=== PATIENT | male | born 1960 | race American Indian/Alaskan Native ===

== ENCOUNTER 2019-08-15 18:01 | Emergency (ER) | payer BC ==
--- NOTE | 2019-08-15 18:56 | Emergency Department Report ---
ED Psych HPI - General Chief Complaint: Psych Stated Complaint: PSYCH EVAL Time Seen by Provider: 08/15/19 18:39 Source: EMS Mode of arrival: Stretcher - History of Present Illness Initial Comments: Patient is 59 years old male with history of paranoid schizophrenia, hypertension and hyperlipidemia. Patient brought to the emergency room accompanied by his and his son. Both reported that patient has been very paranoid recently. He refused to eat or drink since this morning. They stated that he has been pacing in the house. They also stated that he is asking suspicious question. When I talked to the patient patient is unable to give a complete the statement. Family also stated that he fell and hit his head on Thursday but did not seek any medical attention. When asked about suicidal and homicidal ideation patient refused to answer. MD Complaint: altered mental status -: days(s) (4) Associated Psychiatric Symptoms: racing thoughts History of same: Yes Quality: constant Associated Symptoms: denies other symptoms Treatments Prior to Arrival: none - Related Data Home Medications Medication Instructions Recorded Confirmed Last Taken Amlodipine Besylate [Norvasc] 10 mg PO QAM 08/15/19 08/15/19 Unknown Aspirin [Aspirin BABY CHEW TAB] 81 mg PO QDAY 08/15/19 08/15/19 Unknown Lacosamide [Vimpat] 400 mg PO BID 08/15/19 08/15/19 Unknown OLANZapine [Zyprexa] 10 mg PO BID 08/15/19 08/15/19 Unknown Simvastatin 40 mg PO QHS 08/15/19 08/15/19 Unknown Tamsulosin [Flomax] 0.4 mg PO QHS 08/15/19 08/15/19 Unknown lamoTRIgine [LaMICtal] 400 mg PO BID 08/15/19 08/15/19 Unknown Allergies Allergy/AdvReac Type Severity Reaction Status Date / Time No Known Allergies Allergy Unverified 08/15/19 21:20 ED Review of Systems ROS: Stated complaint: PSYCH EVAL Other details as noted in HPI Comment: All other systems reviewed and negative Constitutional: denies: chills, fever Respiratory: denies: cough Cardiovascular: denies: chest pain Gastrointestinal: denies: abdominal pain, nausea, vomiting Musculoskeletal: denies: back pain ED Past Medical Hx - Past Medical History Previous Medical History?: Yes Hx Hypertension: Yes Hx Seizures: Yes Hx Psychiatric Treatment: Yes (behavior disorder) - Surgical History Past Surgical History?: No - Social History Smoking Status: Never Smoker Substance Use Type: None - Medications Home Medications: Home Medications Medication Instructions Recorded Confirmed Last Taken Type Amlodipine Besylate [Norvasc] 10 mg PO QAM 08/15/19 08/15/19 Unknown History Aspirin [Aspirin BABY CHEW TAB] 81 mg PO QDAY 08/15/19 08/15/19 Unknown History Lacosamide [Vimpat] 400 mg PO BID 08/15/19 08/15/19 Unknown History OLANZapine [Zyprexa] 10 mg PO BID 08/15/19 08/15/19 Unknown History Simvastatin 40 mg PO QHS 08/15/19 08/15/19 Unknown History Tamsulosin [Flomax] 0.4 mg PO QHS 08/15/19 08/15/19 Unknown History lamoTRIgine [LaMICtal] 400 mg PO BID 08/15/19 08/15/19 Unknown History ED Physical Exam - General Limitations: No Limitations General appearance: alert, in no apparent distress - Head Head exam: Present: atraumatic, normocephalic, normal inspection - Eye Eye exam: Present: normal appearance - ENT ENT exam: Present: normal exam, normal orophraynx, mucous membranes moist - Neck Neck exam: Present: normal inspection, full ROM. Absent: tenderness, meningismus, lymphadenopathy, thyromegaly - Respiratory Respiratory exam: Present: normal lung sounds bilaterally - Cardiovascular Cardiovascular Exam: Present: regular rate, normal rhythm, normal heart sounds - GI/Abdominal GI/Abdominal exam: Present: soft, normal bowel sounds. Absent: distended, tenderness, guarding, rebound, rigid, organomegaly, mass, bruit, pulsatile mass, hernia - Extremities Exam Extremities exam: Present: normal inspection, full ROM, normal capillary refill. Absent: tenderness, pedal edema, joint swelling, calf tenderness - Back Exam Back exam: Present: normal inspection, full ROM. Absent: CVA tenderness (R), CVA tenderness (L), muscle spasm, paraspinal tenderness, vertebral tenderness - Neurological Exam Neurological exam: Present: alert, oriented X3, CN II-XII intact, normal gait, reflexes normal. Absent: motor sensory deficit - Psychiatric Psychiatric exam: Absent: depressed, agitated, homicidal ideation, suicidal ideation - Skin Skin exam: Present: warm, intact, normal color ED Course Vital Signs 08/15/19 08/15/19 08/15/19 18:25 18:53 18:57 Temperature 98.5 F 98.5 F Pulse Rate 101 H 101 H Respiratory 17 17 17 Rate Blood Pressure 160/98 Blood Pressure [Left] O2 Sat by Pulse 98 98 98 Oximetry 08/15/19 08/15/19 08/16/19 21:58 23:31 00:09 Temperature 97.9 F 98.2 F Pulse Rate 95 H 95 H Respiratory 18 18 18 Rate Blood Pressure Blood Pressure 169/98 163/95 [Left] O2 Sat by Pulse 97 97 97 Oximetry 08/16/19 08/16/19 07:27 13:52 Temperature 98.1 F 97.9 F Pulse Rate 90 93 H Respiratory 20 20 Rate Blood Pressure Blood Pressure 159/103 146/114 [Left] O2 Sat by Pulse 96 100 Oximetry ED Medical Decision Making - Lab Data Result diagrams: 08/15/19 19:09 08/15/19 19:09 Critical care attestation.: If time is entered above; I have spent that time in minutes in the direct care of this critically ill patient, excluding procedure time. ED Disposition Clinical Impression: Paranoid Disposition: DC-01 TO HOME OR SELFCARE Is pt being admited?: No Condition: Stable Referrals: [facility] [Outside] - 3-5 Days BRAWLEY NENITA VILLA MD [Primary Care Provider] - 3-5 Days
[2019-08-15 19:30] LABS: Basophils % (Auto) 0.2 % (0.0-1.8); Eosinophils % (Auto) 0.1 % (0.0-4.3); Hematocrit 35.9 % (35.5-45.6); Hemoglobin 11.8 gm/dl (11.8-15.2); Lymphocytes # (Auto) 0.9 K/mm3 (1.2-5.4); Lymphocytes % (Auto) 16.2 % (13.4-35.0); Mean Corpuscular HGB Conc 33 % (32-34); Mean Corpuscular Volume 95 fl (84-94); Monocytes # (Auto) 0.5 K/mm3 (0.0-0.8); Monocytes % (Auto) 8.4 % (0.0-7.3); Platelet Count 266 K/mm3 (140-440); Red Blood Count 3.77 M/mm3 (3.65-5.03); Red Cell Distribution Width 13.1 % (13.2-15.2)
[2019-08-15 19:41] LABS: BUN/Creatinine Ratio 7; Blood Urea Nitrogen 7 mg/dL (9-20); Calcium 10.1 mg/dL (8.4-10.2); Hemolysis Index 8
[2019-08-15 19:46] LABS: Alanine Aminotransferase 11 units/L (7-56); Albumin 4.9 g/dL (3.9-5)
[2019-08-15 19:49] LABS: Bilirubin,Direct < 0.2 mg/dL (0-0.2)
--- NOTE | 2019-08-15 20:18 | Cat Scan Report ---
CT head/brain wo con INDICATION / CLINICAL INFORMATION: 59 years Male; head injury. TECHNIQUE: Routine CT head without contrast. All CT scans at this location are performed using CT dos e reduction for ALARA by means of automated exposure control. COMPARISON: None. FINDINGS: BRAIN / INTRACRANIAL CONTENTS: Minimal cerebral atrophy noted. No acute hemorrhage, mass effect, midl ine shift, hydrocephalus, or acute, large territorial infarct. No chronic infarct or atrophy apprecia patsy. Minimal, nonspecific white matter disease identified. There is ossification along the inner table of the left parietal bone, which should be of no clinical significance. There is a lucency seen in the right frontal bone posteriorly. No signs of associated soft tissue abn ormality seen. Etiologies such as eosinophilic granuloma might be a consideration. CRANIOCERVICAL JUNCTION: No significant abnormality. ORBITS: No significant abnormality of visualized orbits. SINUSES / MASTOIDS: There may be minimal mucosal thickening in the mastoids. ADDITIONAL FINDINGS: None. IMPRESSION: 1. No focal intra-axial mass, hemorrhage, hydrocephalus, or acute, large territorial infarct. 2. Right frontal bone lesion identified as described above. Signer Name: Shamar Valdivia MD, III Signed: 08/15/2019 8:13 PM Workstation Name: [id number]
[2019-08-15] MEDS ORDERED: TAMSULOSIN 0.4 MG CAP PO SCH ×2 (21:23→22:00)
[2019-08-15] MEDS ORDERED: PRAVASTATIN 40 MG TAB PO ONE (21:28)
[2019-08-15] MEDS: LACOSAMIDE 100 MG TAB PO SCH (21:55)
[2019-08-15] MEDS: lamoTRIgine 100 MG TAB PO SCH ×2 (21:56→22:02)
[2019-08-15] MEDS ORDERED: PRAVASTATIN 80 MG TAB PO SCH (22:00)
[2019-08-15] MEDS ORDERED: LACOSAMIDE PO SCH (22:00)
[2019-08-15] MEDS ORDERED: LAMOTRIGINE 400 MG PO SCH (22:00)
[2019-08-15 23:08] LABS: Bilirubin,Urine NEG (Negative); Blood,Urine SM (Negative); Color,Urine Straw (Yellow); Urobilinogen,Urine < 2.0 mg/dL (<2.0)
[2019-08-15 23:16] LABS: Amphetamine Screen,Urine PRESUMPTIVE NEGATIVE; Cannabinoid Screen,Urine PRESUMPTIVE NEGATIVE; Cocaine Screen,Urine PRESUMPTIVE NEGATIVE; Methadone Screen,Urine PRESUMPTIVE NEGATIVE; Opiate Screen,Urine PRESUMPTIVE NEGATIVE
[2019-08-15 23:57] LABS: Benzodiazepines Screen,Urine PRESUMPTIVE NEGATIVE
[2019-08-16] MEDS ORDERED: amLODIPine 5 MG TAB PO SCH (10:00)
[2019-08-16] MEDS ORDERED: amLODIPine 10 MG TAB PO SCH (10:00)
[2019-08-16] MEDS: lamoTRIgine 100 MG TAB PO SCH (11:01)
[2019-08-16] MEDS: LACOSAMIDE 100 MG TAB PO SCH (11:03)
[2019-08-16 13:54] VITALS: BP 146/114
== END 2019-08-16 14:44 | disposition home or self-care (01) ==
LOC: EEVIPCON 18:01 → ED 18:01
DX: F91.8 Other conduct disorders (principal); I10 Essential (primary) hypertension; Z79.899 Other long term (current) drug therapy
CPT/HCPCS: 36415; 70450; 80048; 80076; 80307; 81001; 85025; 99285; A9270; 80320; G0480